=== PATIENT | female | born 1985 | race African-American/Black ===

== ENCOUNTER 2018-12-11 01:24 | Emergency (ER) | payer SELFPAY ==
[2018-12-11 02:24] LABS: Absolute Lymphocytes (CBC) 1.9 K/uL (0.7-4.9); Absolute Monocytes 0.6 K/uL (0.1-1.3); Absolute Neutrophil 11.2 K/uL (1.8-8.0); Basophils % 0.8 % (0-1.3); Eosinophils % 0.4 % (0-4.4); Hematocrit 41.3 % (36.0-45.0); Lymphocytes % 13.6 % (15.3-44.8); MPV 9.8 fL (7.6-11.3); RBC Red Blood Cell Count 4.99 M/uL (3.86-4.86)
[2018-12-11] MEDS ORDERED: NA CHLORIDE 0.9% 1,000 ML ONE (02:30)
[2018-12-11] MEDS ORDERED: PROMETHAZINE 25 MG/ML VIAL ONE (02:30)
[2018-12-11 02:58] LABS: ALT/SGPT 47 U/L (12-78); AST/SGOT 66 U/L (15-37); Albumin 4.2 g/dL (3.4-5.0); Alkaline Phosphatase 85 U/L (45-117); BUN Blood Urea Nitrogen 14 mg/dL (7-18); Bicarbonate 25 mmol/L (21-32); Bilirubin Direct 0.2 mg/dL (0-0.2); Bilirubin Total 0.6 mg/dL (0.2-1.0); Glucose Level 142 mg/dL (74-106); Lipase 183 U/L (73-393); Potassium 3.8 mmol/L (3.5-5.1); Protein, Total 8.4 g/dL (6.4-8.2); Sodium Level 139 mmol/L (136-145)
[2018-12-11] MEDS ORDERED: FENTANYL CITR 100 MCG/2 ML ONE (02:59)
[2018-12-11 04:54] LABS: Urine Blood 3+ (NEG); Urine Glucose NEGATIVE (NEG); Urine Protein TRACE (NEG); Urine Specific Gravity 1.015 (1.005-1.030); Urine pH >8.5 (5.0-7.0)
[2018-12-11 05:05] LABS: Urine Amorphous Sediment 4+ /HPF (NONE SEEN); Urine Bacteria <20 /HPF (<20); Urine Culture Reflex Order NOT NEEDED
--- NOTE | 2018-12-11 05:16 | ER ---
Nurse's Notes [facility] Name: Roula Kenyon Age: 33 yrs Sex: Female : 1985 Arrival Date: 12/11/2018 Time: 01:32 Bed 18 Private MD: Diagnosis: Regional enteritis Presentation: 12/11 01:40 Presenting complaint: Patient states: abdominal pain mostly in the diaphragmatic area cc3 since tonight. Transition of care: patient was not received from another setting of care. Onset of symptoms was December 10, 2018. Risk Assessment: Do you want to hurt yourself or someone else? Patient reports no desire to harm self or others. Initial Sepsis Screen: Does the patient meet any 2 criteria? No. Patient's initial sepsis screen is negative. Does the patient have a suspected source of infection? No. Patient's initial sepsis screen is negative. Care prior to arrival: None. 01:40 Method Of Arrival: Ambulatory cc3 01:40 Acuity: SHALONDA 3 cc3 Triage Assessment: 01:40 General: Appears in no apparent distress. uncomfortable, Behavior is calm, cooperative, cc3 appropriate for age. Pain: Complains of pain in left upper quadrant and right upper quadrant. EENT: No signs and/or symptoms were reported regarding the EENT system. Neuro: Level of Consciousness is awake, alert, obeys commands, Oriented to person, place, time, situation, Appropriate for age. Cardiovascular: Patient's skin is warm and dry. Respiratory: Airway is patent Respiratory effort is even, unlabored, Respiratory pattern is regular, symmetrical. GI: Abdomen is round non-distended. : No signs and/or symptoms were reported regarding the genitourinary system. Derm: No signs and/or symptoms reported regarding the dermatologic system. Musculoskeletal: Circulation, motion, and sensation intact. Range of motion: intact in all extremities. CLIENT SUPPORT MANAGER: 01:40 LMP 12/02/2018 cc3 Historical: - Allergies: 01:40 No Known Allergies; cc3 - Home Meds: 01:40 None [Active]; cc3 - PMHx: 01:40 None; cc3 - PSHx: 01:40 None; cc3 - Immunization history:: Adult Immunizations up to date. - Social history:: Smoking status: Patient/guardian denies using tobacco, never smoked. - Ebola Screening: : No symptoms or risks identified at this time. Screenin:40 Abuse screen: Denies threats or abuse. Denies injuries from another. Nutritional cc3 screening: No deficits noted. Tuberculosis screening: No symptoms or risk factors identified. Fall Risk Ambulatory Aid- None/Bed Rest/Nurse Assist (0 pts). Gait- Normal/Bed Rest/Wheelchair (0 pts) Mental Status- Oriented to own ability (0 pts). Assessment: 01:40 GI: Bowel sounds present X 4 quads. Abd is soft and non tender X 4 quads. cc3 02:18 Reassessment: Patient appears in no apparent distress at this time. Patient and/or cc3 family updated on plan of care and expected duration. Pain level reassessed. Patient is alert, oriented x 3, equal unlabored respirations, skin warm/dry/pink. 03:10 Reassessment: Patient appears in no apparent distress at this time. Patient and/or cc3 family updated on plan of care and expected duration. Pain level reassessed. Patient is alert, oriented x 3, equal unlabored respirations, skin warm/dry/pink. Patient finished her oral contrast, CT scan department informed. 04:25 Reassessment: Patient appears in no apparent distress at this time. Patient and/or cc3 family updated on plan of care and expected duration. Pain level reassessed. Patient is alert, oriented x 3, equal unlabored respirations, skin warm/dry/pink. Patient taken by commercial pest control technician to CT scan department. 05:40 Reassessment: Patient appears in no apparent distress at this time. Patient and/or cc3 family updated on plan of care and expected duration. Pain level reassessed. Patient is alert, oriented x 3, equal unlabored respirations, skin warm/dry/pink. Dr. Riggs discharged home the patient with prescription given. IV cannula removed and patient left ER vitally stable and ambulatory. Vital Signs: 01:40 BP 138 / 94; Pulse 73; Resp 20 S; Temp 97.9(O); Pulse Ox 100% on R/A; Weight 83.91 kg cc3 (R); Height 5 ft. 1 in. (154.94 cm) (R); 02:15 BP 128 / 75; Pulse 68; Resp 18 S; Pulse Ox 100% on R/A; cc3 03:30 BP 110 / 77; Pulse 67; Resp 18 S; Pulse Ox 100% on R/A; cc3 04:54 BP 123 / 75; Pulse 71; Resp 17 S; Pulse Ox 98% on R/A; cc3 05:15 BP 113 / 70; Pulse 70; Resp 16 S; Pulse Ox 99% on R/A; cc3 01:40 Body Mass Index 34.96 (83.91 kg, 154.94 cm) cc3 ED Course: 01:32 Patient arrived in ED. ds1 01:40 Heather Guerin FNP-C is PHCP. snw 01:40 Harsha Rgigs MD is Attending Physician. snw 01:40 Arm band placed on right wrist. cc3 01:40 Patient has correct armband on for positive identification. Bed in low position. Call cc3 light in reach. Side rails up X 1. Pulse ox on. NIBP on. 01:51 Ani Bowie is Primary Nurse. cc3 02:00 Triage completed. cc3 02:05 Inserted saline lock: 20 gauge in right antecubital area, using aseptic technique. cc3 Blood collected. 04:10 Radiology exam delayed due to test not completed at this time. kw1 04:[address] via wheelchair. kw1 04:38 CT completed. Patient tolerated procedure well. Patient moved back from CT. kw1 04:45 CT Abd/Pelvis - W/Contrast In Process Unspecified. EDMS 05:16 Irving Goncalves MD is Referral Physician. rn 05:40 No provider procedures requiring assistance completed. IV discontinued, intact, cc3 bleeding controlled, No redness/swelling at site. Pressure dressing applied. Administered Medications: 02:10 Drug: NS 0.9% 1000 ml Route: IV; Rate: 1 bolus; Site: right antecubital; cc3 03:15 Follow up: Response: No adverse reaction; IV Status: Completed infusion; IV Intake: cc3 1000ml 02:20 Drug: Phenergan 12.5 mg Route: IVP; Site: right antecubital; cc3 03:00 Follow up: Response: No adverse reaction; Nausea is decreased cc3 02:50 Drug: fentaNYL (PF) 50 mcg Route: IVP; Site: right antecubital; cc3 03:15 Follow up: Response: No adverse reaction; Pain is decreased cc3 05:25 Drug: Cipro 500 mg Route: PO; cc3 05:40 Follow up: Response: No adverse reaction cc3 05:25 Drug: Flagyl 500 mg Route: PO; cc3 05:40 Follow up: Response: No adverse reaction cc3 Intake: 03:15 IV: 1000ml; Total: 1000ml. cc3 Outcome: 05:16 Discharge ordered by . rn 05:40 Discharged to home ambulatory. cc3 05:40 Condition: stable 05:40 Discharge instructions given to patient, Instructed on discharge instructions, follow up and referral plans. medication usage, Demonstrated understanding of instructions, follow-up care, medications, Prescriptions given X 2. 05:46 Patient left the ED. cc3 Signatures: Dispatcher [employer] EDMS Heather Guerin, MEDICAL ASSEMBLER-C MEDICAL ASSEMBLER-Csnw Dianna Dale1 Harsha Riggs MD MD rn Wilhelm, Kimberly kw1 Ani Bowie cc3
--- NOTE | 2018-12-11 05:17 | EDPHYS ---
Physician Documentation [facility] Name: Roula Kenyon Age: 33 yrs Sex: Female : 1985 Arrival Date: 12/11/2018 Time: 01:32 Bed 18 Private MD: ED Physician Harsha Riggs HPI: 12/11 01:51 This 33 yrs old Black Female presents to ER via Unassigned with complaints of Abdominal snw Pain. 01:51 The patient presents with abdominal pain in the epigastric area. Onset: The snw symptoms/episode began/occurred suddenly, 4 hour(s) ago, and became persistent. The symptoms do not radiate. Associated signs and symptoms: Pertinent positives: nausea and vomiting. The symptoms are described as constant, stabbing. Severity of pain: At its worst the pain was severe in the emergency department the pain is unchanged. The patient has experienced similar episodes in the past. The patient has not recently seen a physician. SUPERCHARGE REPAIR SUPERVISOR: 01:40 LMP 12/02/2018 cc3 Historical: - Allergies: 01:40 No Known Allergies; cc3 - Home Meds: 01:40 None [Active]; cc3 - PMHx: 01:40 None; cc3 - PSHx: 01:40 None; cc3 - Immunization history:: Adult Immunizations up to date. - Social history:: Smoking status: Patient/guardian denies using tobacco, never smoked. - Ebola Screening: : No symptoms or risks identified at this time. ROS: 01:50 Constitutional: Negative for fever, chills, and weight loss, Eyes: Negative for injury, snw pain, redness, and discharge, ENT: Negative for injury, pain, and discharge, Neck: Negative for injury, pain, and swelling, Cardiovascular: Negative for chest pain, palpitations, and edema, Respiratory: Negative for shortness of breath, cough, wheezing, and pleuritic chest pain, Back: Negative for injury and pain, : Negative for injury, bleeding, discharge, and swelling, MS/Extremity: Negative for injury and deformity, Skin: Negative for injury, rash, and discoloration, Neuro: Negative for headache, weakness, numbness, tingling, and seizure. 01:50 Abdomen/GI: Positive for abdominal pain, nausea. Exam: 01:49 Head/Face: Normocephalic, atraumatic. Eyes: Pupils equal round and reactive to light, snw extra-ocular motions intact. Lids and lashes normal. Conjunctiva and sclera are non-icteric and not injected. Cornea within normal limits. Periorbital areas with no swelling, redness, or edema. ENT: Nares patent. No nasal discharge, no septal abnormalities noted. Tympanic membranes are normal and external auditory canals are clear. Oropharynx with no redness, swelling, or masses, exudates, or evidence of obstruction, uvula midline. Mucous membranes moist. Neck: Trachea midline, no thyromegaly or masses palpated, and no cervical lymphadenopathy. Supple, full range of motion without nuchal rigidity, or vertebral point tenderness. No Meningismus. Chest/axilla: Normal chest wall appearance and motion. Nontender with no deformity. No lesions are appreciated. Cardiovascular: Regular rate and rhythm with a normal S1 and S2. No gallops, murmurs, or rubs. Normal PMI, no JVD. No pulse deficits. Respiratory: Lungs have equal breath sounds bilaterally, clear to auscultation and percussion. No rales, rhonchi or wheezes noted. No increased work of breathing, no retractions or nasal flaring. Back: No spinal tenderness. No costovertebral tenderness. Full range of motion. Skin: Warm, dry with normal turgor. Normal color with no rashes, no lesions, and no evidence of cellulitis. MS/ Extremity: Pulses equal, no cyanosis. Neurovascular intact. Full, normal range of motion. Neuro: Awake and alert, GCS 15, oriented to person, place, time, and situation. Cranial nerves II-XII grossly intact. Motor strength 5/5 in all extremities. Sensory grossly intact. Cerebellar exam normal. Normal gait. Psych: Awake, alert, with orientation to person, place and time. Behavior, mood, and affect are within normal limits. 01:49 Cardiovascular: Tachycardic rate and rhythm with a normal S1 and S2. No gallops, murmurs, or rubs. Normal PMI, no JVD. No pulse deficits. 01:49 Constitutional: The patient appears awake, anxious, in obvious pain, pale, restless, uncomfortable. 01:49 Abdomen/GI: Inspection: abdomen appears normal, obese Bowel sounds: normal, Palpation: moderate abdominal tenderness, in the right upper quadrant and left upper quadrant. Vital Signs: 01:40 BP 138 / 94; Pulse 73; Resp 20 S; Temp 97.9(O); Pulse Ox 100% on R/A; Weight 83.91 kg cc3 (R); Height 5 ft. 1 in. (154.94 cm) (R); 02:15 BP 128 / 75; Pulse 68; Resp 18 S; Pulse Ox 100% on R/A; cc3 03:30 BP 110 / 77; Pulse 67; Resp 18 S; Pulse Ox 100% on R/A; cc3 04:54 BP 123 / 75; Pulse 71; Resp 17 S; Pulse Ox 98% on R/A; cc3 05:15 BP 113 / 70; Pulse 70; Resp 16 S; Pulse Ox 99% on R/A; cc3 01:40 Body Mass Index 34.96 (83.91 kg, 154.94 cm) cc3 MDM: 01:41 Patient medically screened. snw 04:19 ED course: Pt improved, pain free. . rn 05:14 Differential diagnosis: appendicitis, cholecystitis, Cholelithiasis, diverticulitis, rn gastritis, gastroesophageal reflux disease, non-specific abd pain, pancreatitis, Ureterolithiasis, urinary tract infection. Data reviewed: vital signs, nurses notes, lab test result(s), radiologic studies, CT scan, and as a result, I will discharge patient. Counseling: I had a detailed discussion with the patient and/or guardian regarding: the historical points, exam findings, and any diagnostic results supporting the discharge/admit diagnosis, lab results, radiology results, the need for outpatient follow up, to return to the emergency department if symptoms worsen or persist or if there are any questions or concerns that arise at home. Response to treatment: the patient's symptoms have markedly improved after treatment, and as a result, I will discharge patient. ED course: Pt improved, sleeping comfortably, pain free, ct shows focal area of inflammation in intestine, spoke with patient, has had numerous similar episodes in past, no famhx of IBD, recommend abx now, and GI f/u for further w/u. . 12/11 01:47 Order name: Basic Metabolic Panel; Complete Time: 02:59 snw 12/11 01:47 Order name: CBC with Diff; Complete Time: 02:34 snw 12/11 01:47 Order name: Hepatic Function; Complete Time: 02:59 w 12/11 01:47 Order name: Lipase; Complete Time: 02:59 snw 12/11 01:47 Order name: Urine Culture 12/11 01:47 Order name: Urine Microscopic Only; Complete Time: 05:08 12/11 02:35 Order name: CT Abd/Pelvis - W/Contrast; Complete Time: 15:45 snw 12/11 04:26 Order name: Urine Dipstick--Ancillary (enter results); Complete Time: 05:08 12/11 04:26 Order name: Urine --Ancillary (enter results); Complete Time: 05:08 12/11 01:47 Order name: IV Saline Lock; Complete Time: 04:29 w 12/11 01:47 Order name: Labs collected and sent; Complete Time: 04:29 w 12/11 01:47 Order name: Urine Test (obtain specimen); Complete Time: 04:29 w 12/11 01:47 Order name: Urine Dipstick-Ancillary (obtain specimen); Complete Time: 04:29 snw Administered Medications: 02:10 Drug: NS 0.9% 1000 ml Route: IV; Rate: 1 bolus; Site: right antecubital; cc3 03:15 Follow up: Response: No adverse reaction; IV Status: Completed infusion; IV Intake: cc3 1000ml 02:20 Drug: Phenergan 12.5 mg Route: IVP; Site: right antecubital; cc3 03:00 Follow up: Response: No adverse reaction; Nausea is decreased cc3 02:50 Drug: fentaNYL (PF) 50 mcg Route: IVP; Site: right antecubital; cc3 03:15 Follow up: Response: No adverse reaction; Pain is decreased cc3 05:25 Drug: Cipro 500 mg Route: PO; cc3 05:40 Follow up: Response: No adverse reaction cc3 05:25 Drug: Flagyl 500 mg Route: PO; cc3 05:40 Follow up: Response: No adverse reaction cc3 Disposition: 06:51 Co-signature as Attending Physician, Harsha Riggs MD. rn Disposition: 12/11/18 05:16 Discharged to Home. Impression: Regional enteritis. - Condition is Stable. - Discharge Instructions: Abdominal Pain, Adult. - Prescriptions for Flagyl 500 mg Oral Tablet - take 1 tablet by ORAL route every 12 hours for 7 days; 14 tablet. Cipro 500 mg Oral Tablet - take 1 tablet by ORAL route every 12 hours for 7 days; 14 tablet. - Medication Reconciliation Form, Thank You Letter, Antibiotic Education, Prescription Opioid Use form. - Follow up: Irving Goncalves MD; When: As needed; Reason: Recheck today's complaints, Re-evaluation by your physician. - Problem is new. - Symptoms have improved. Signatures: Dispatcher [employer] EDMS Heather Guerin, BINDING CUTTER SYNTHETIC CLOTH-C BINDING CUTTER SYNTHETIC CLOTH-Csnw Harsha Riggs MD MD rn Ani Bowie cc3 Corrections: (The following items were deleted from the chart) 05:46 05:16 12/11/2018 05:16 Discharged to Home. Impression: Regional enteritis. Condition is cc3 Stable. Forms are Medication Reconciliation Form, Thank You Letter, Antibiotic Education, Prescription Opioid Use. Follow up: Irving Goncalves; When: As needed; Reason: Recheck today's complaints, Re-evaluation by your physician. Problem is new. Symptoms have improved. rn
[2018-12-11] MEDS ORDERED: CIPROFLOXACIN HCL 500 MG TAB ONE (05:39)
[2018-12-11] MEDS ORDERED: metroNIDAZOLE 500 MG TABLET ONE (05:39)
--- NOTE | 2018-12-11 12:13 | RAD REPORT ---
EXAM DESCRIPTION: CT abdomen and pelvis with IV contrast CLINICAL HISTORY: 33-year-old female with abdominal pain in the diaphragmatic area TECHNIQUE: Axial CT imaging of the abdomen and pelvis was performed following the administration of intravenous contrast.. Sagittal and coronal reconstructed images were then performed. The CT stud y is performed according to ALARA (as low as reasonably achievable) or ALARA/IMAGE GENTLY, with autom atic adjustment of mA and/or kV according to patient size. Performed on: 12/11/2018 at 4:35 AM. COMPARISON: None. FINDINGS: Lung bases: The lung bases are clear. There is minimal bibasilar atelectasis and/or fibros is. Liver: The liver is normal in size and configuration. No focal hepatic abnormalities are identified. Liver attenuation is within normal limits. Spleen: The spleen is normal is size, configuration and attenuation. Gallbladder and bile duct: The gallbladder is well distended and unremarkable. There is no biliary ductal dilatation. Pancreas: The pancreas is grossly normal in size and configuration. Adrenal Glands: The adrenal glands are normal in size and configuration. Kidneys: The kidneys are normal in size and configuration. There is no evidence of hydronephrosis. Th ere is no evidence of nephrolithiasis. No definite solid or cystic renal mass lesions are identified. Stomach: The stomach is grossly normal. There is no definite hiatal hernia. Bowel: The bowel gas pattern is non specific and non obstructive. There is bowel wall thickening invo lving a few small bowel loops in the left hemiabdomen in the left upper quadrant. This finding is non specific but may reflect a localized inflammatory process of the small bowel. There is no surrounding mesenteric inflammation. Appendix: The appendix is normal. Free air: There is no evidence of free air. Free fluid: There is no evidence of free fluid. Vasculature: The aorta is normal in caliber and contour. The inferior vena cava is grossly unremarkab le. Lymphadenopathy: No pathologic lymphadenopathy is identified. Bladder: The bladder is well distended and smooth in contour. Reproductive: The uterus is grossly within normal limits. Bones: No acute osseous abnormalities are identified. Soft tissues: No focal soft tissue abnormalities are identified. IMPRESSION: 1. There is bowel wall thickening involving a few small bowel loops in the left upper qu adrant. This finding is nonspecific but may reflect a localized inflammatory process of the small bow el. 2. Otherwise, unremarkable contrast-enhanced CT scan of the abdomen and pelvis. Electronically signed by: Jessica Ojeda DO 12/11/2018 5:03 AM ENVIRONMENTAL TECHNICIAN Due to temporary technical issues with the PACS/Fluency reporting system, reports are being signed by the in house radiologist as a courtesy to ensure prompt reporting. The interpreting radiologist is f ully responsible for the content of the report.
== END 2018-12-11 05:46 | disposition home or self-care (01) ==
LOC: ER 01:24
DX: K50.90 Crohn's disease, unspecified, without complications (principal)
CPT/HCPCS: 36415; 74177; 80048; 80076; 81003; 81015; 81025; 83690; 85025; 87086; 87088; 96361; 96374; 96375; 99284; J2550; J3010; J7030; Q9967